=== PATIENT | female | born 1940 | race Caucasian/White ===

== ENCOUNTER 2019-04-02 13:00 | Emergency (ER) | payer MEDICARE ==
[~2019-04-02] VITALS: Ht 172.7 cm; Wt 63.7 kg
[2019-04-02 13:54] LABS: BASOPHILS % (AUTO) 0.4 % (0-1); EOSINOPHILS % (AUTO) 0.3 % (0-6); HEMATOCRIT 44.8 % (35.0-45.0); HEMOGLOBIN 15.3 g/dl (12.0-16.0); LYMPHOCYTES # (AUTO) 1.4 X10'3 (1.1-4.8); LYMPHOCYTES % (AUTO) 11.2 % (21-51); MEAN CORPUSCULAR HEMOGLOBIN 31.4 PG (27.0-31.0); MEAN CORPUSCULAR HGB CONC 34.3 g/dL (33.0-36.5); MEAN CORPUSCULAR VOLUME 91.7 FL (78-98); MEAN PLATELET VOLUME 7.4 FL (7.4-10.4); MONOCYTES # (AUTO) 0.7 X10'3 (0-0.9); MONOCYTES % (AUTO) 5.2 % (2-12); NEUTROPHILS # (AUTO) 10.3 X10'3 (1.8-7.7); NEUTROPHILS % (AUTO) 82.9 % (42-75); PLATELET COUNT 298 X10'3 (140-440); RED BLOOD COUNT 4.88 X10'6 (4.20-5.60); RED CELL DISTRIBUTION WIDTH 13.6 % (11.5-14.5); WHITE BLOOD COUNT 12.4 X10'3 (4.5-11.0)
[2019-04-02 14:22] LABS: ALANINE AMINOTRANSFERASE 25 U/L (12-78); ALBUMIN 4.3 G/DL (3.4-5.0); ALKALINE PHOSPHATASE 65 IU/L (46-116); ANION GAP 9 (8-16); ASPARTATE AMINO TRANSFERASE 21 U/L (10-37); BILIRUBIN,TOTAL 0.5 MG/DL (0.1-1.0); BLOOD UREA NITROGEN 12 MG/DL (7-18); BUN/CREATININE RATIO 17.4 (6.6-38.0); CALCIUM 9.7 MG/DL (8.5-10.1); CHLORIDE 100 MMOL/L (99-107); CREATININE 0.69 MG/DL (0.40-0.90); GLUCOSE 103 MG/DL (70-104); POTASSIUM 3.8 MMOL/L (3.5-5.1); SODIUM 137 MMOL/L (135-145); TOTAL CARBON DIOXIDE 27.6 MMOL/L (24-32); TOTAL PROTEIN 8.5 G/DL (6.4-8.2); eGFR 83 ML/MIN
[2019-04-02] MEDS ORDERED: cloNIDine 0.1 mg tablet PO ONE (14:35)
[2019-04-02] MEDS ORDERED: CLON-529 PO (14:37)
[2019-04-02 15:40] VITALS: BP 129/76
== END 2019-04-02 15:41 | disposition home or self-care (01) ==
LOC: ER 13:01
DX: I10 Essential (primary) hypertension (principal); R00.2 Palpitations; R42 Dizziness and giddiness
CPT/HCPCS: 36415; 71045; 80053; 84484; 85025; 93005; 99284

== ENCOUNTER 2019-04-05 17:55 | Emergency (ER) | payer MEDICARE ==
[~2019-04-05] VITALS: Ht 172.7 cm; Wt 64.5 kg
[~2019-04-05 17:55] MED LIST: CLON-529 PO
[2019-04-05] MEDS ORDERED: LABE100T5 PO (20:47)
[2019-04-05 21:24] VITALS: BP 126/78
[2019-04-06] MEDS ORDERED: CLON-529 PO (18:08)
[2019-04-06] MEDS ORDERED: LORA-269 PO (18:08)
== END 2019-04-05 21:20 | disposition home or self-care (01) ==
LOC: ER 17:57
DX: I10 Essential (primary) hypertension (principal); F10.99 Alcohol use, unspecified with unspecified alcohol-induced disorder; Z60.2 Problems related to living alone; Z79.899 Other long term (current) drug therapy; Y90.9 Presence of alcohol in blood, level not specified
CPT/HCPCS: 99283

== ENCOUNTER 2019-04-06 16:59 | Emergency (ER) | payer MEDICARE ==
[~2019-04-06] VITALS: Ht 175.3 cm; Wt 63.0 kg
[~2019-04-06 16:59] MED LIST changes: +LABE100T5 PO
[2019-04-06 17:02] VITALS: BP 178/90
[2019-04-06] MEDS ORDERED: CLON-529 PO (18:08)
[2019-04-06] MEDS ORDERED: LORA-269 PO (18:08)
== END 2019-04-06 18:26 | disposition home or self-care (01) ==
LOC: ER 16:59
DX: I10 Essential (primary) hypertension (principal); F10.99 Alcohol use, unspecified with unspecified alcohol-induced disorder; Z60.2 Problems related to living alone; Z79.899 Other long term (current) drug therapy; Y90.9 Presence of alcohol in blood, level not specified
CPT/HCPCS: 99283

== ENCOUNTER 2022-03-19 14:50 | Emergency (ER) | payer MEDICARE ==
[~2022-03-19] VITALS: Ht 172.7 cm; Wt 67.3 kg
[~2022-03-19 14:50] MED LIST changes: -LABE100T5 PO; +LABE100T8 PO; +LORA-269 PO
[2022-03-19 14:59] VITALS: BP 148/85
[2022-03-19] MEDS ORDERED: oxymetazoline 15 ML nasal spray NS ONE (15:50)
== END 2022-03-19 16:33 | disposition home or self-care (01) ==
LOC: ER 14:51
DX: R04.0 Epistaxis (principal); I10 Essential (primary) hypertension; E07.9 Disorder of thyroid, unspecified; Z79.899 Other long term (current) drug therapy
CPT/HCPCS: 99282

== ENCOUNTER 2024-11-23 07:11 | Day surgery (SDC) | payer MEDICARE ==
[~2024-11-23] VITALS: Ht 172.7 cm; Wt 63.9 kg
[~2024-11-23 07:11] MED LIST changes: +ALPR0.5T9; +AMLO2.5T5 PO; +CA C1TAB95; -CLON-529 PO; -LABE100T8 PO; +LEVO75TA7 PO; -LORA-269 PO; +NEBI20TA6 PO; +OLME40TA18 PO; +PREG75CA76 PO; +SIMV-45 PO
[2024-11-23 07:40] VITALS: BP 155/85; PULSE 61; RESP 13
[2024-11-23] MEDS ORDERED: simethicone 40mg/0.6ml oral drops 30ml ONE (08:21)
[2024-11-23] MEDS ORDERED: propofol inj 20 ML IV ONE (08:26)
[2024-11-23] MEDS ORDERED: fentaNYL/PF 50MCG/1 ML 2ML syringe ONE (08:26)
[2024-11-23 08:40] VITALS: BP 88/54; PULSE 59; RESP 14; O2SAT 98
[2024-11-23 08:50] VITALS: BP 105/58; PULSE 63; RESP 14; O2SAT 93
[2024-11-23 09:00] VITALS: BP 116/68; PULSE 60; RESP 14; O2SAT 93
[2024-11-23 09:10] VITALS: BP 119/68; PULSE 56; RESP 17; O2SAT 96
== END 2024-11-23 09:20 | disposition home or self-care (01) ==
LOC: GI LAB 07:11
PROVIDERS: ATTEND Internal Medicine Gastroenterology
DX: R13.10 Dysphagia, unspecified (principal); K31.7 Polyp of stomach and duodenum; K29.70 Gastritis, unspecified, without bleeding; I10 Essential (primary) hypertension
CPT/HCPCS: 43239; J2704; J3010; J7030; Z7512; 88305; 88342